=== PATIENT | female | born 1950 | race African-American/Black ===

== ENCOUNTER → 2016-05-24 | Outpatient (CLI) | payer MEDICARE ==
--- NOTE | 2016-05-24 13:37 | CT ---
EXAMINATION TYPE: CT chest w con DATE OF EXAM: 05/24/2016 1:12 PM COMPARISON: 11/17/2015 HISTORY: Patient has left lobe nodule CT DLP: 683 mGycm, Automated exposure control for dose reduction was used. CONTRAST: Performed injected with 80 mL of Visipaque 320. TECHNIQUE: Axial images were obtained at 5 mm thick sections. Reconstructed images are reviewed on Mama computer in the coronal plane. FINDINGS: Portion of the thyroid visualized is normal. The 0.5 cm nodule at the left base with a small 0.2 cm nodule more medial, series 6 image 29, appears stable from comparison. No enlarged mediastinal or hilar adenopathy is evident. The ascending aorta diameter at the level o f the main pulmonary artery is 2.6 cm. The main pulmonary artery diameter at the bifurcation is 1.[address] sections are obtained through the upper abdomen. Abdomen is essentially unremarkable. IMPRESSIONS: 1. Couple small stable nodules within the left lung base. 2. Previous pleural effusion has resolved.
== END | disposition home or self-care (01) ==
LOC: RADCTMAIN 11:31
PROVIDERS: ATTEND Family Medicine
DX: R91.8 Other nonspecific abnormal finding of lung field (principal); Z88.8 Allergy status to other drugs, medicaments and biological substances
CPT/HCPCS: 82565; 84520; 71260; 36415; Q9967

== ENCOUNTER → 2021-02-21 | Outpatient (CLI) | payer MEDICARE ==
--- NOTE | 2021-02-21 11:37 | MM ---
Reason for exam: screening (asymptomatic). Last mammogram was performed 6 years and 2 months ago. History: Patient is postmenopausal. Took estrogen for 17 years 7 months beginning at age 45. Physical Findings: A clinical breast exam by your physician is recommended on an annual basis and results should be correlated with mammographic findings. MG 3D Screening Mammo W/Cad Bilateral CC and MLO view(s) were taken. Prior study comparison: December 07, 2014, right breast MG 3d diag mammo wo cad RT. November 16, 2014, bilateral MG screening mammo w CAD. The breast tissue is heterogeneously dense. This may lower the sensitivity of mammography. There are benign appearing round vascular calcifications bilaterally. There is no discrete abnormality. ASSESSMENT: Benign, BI-RAD 2 RECOMMENDATION: Routine screening mammogram of both breasts in 1 year.
== END | disposition home or self-care (01) ==
LOC: RADMAMWWP 09:01
PROVIDERS: ATTEND Family Medicine
DX: Z12.31 Encounter for screening mammogram for malignant neoplasm of breast (principal); Z78.0 Asymptomatic menopausal state
CPT/HCPCS: 77063; 77067

== ENCOUNTER → 2023-08-13 | Outpatient (CLI) | payer MEDICARE ==
--- NOTE | 2023-08-13 21:47 | MR ---
EXAMINATION TYPE: MR lumbar spine wo/w con DATE OF EXAM: 08/13/2023 7:42 PM CLINICAL INDICATION:Female, 73 years old with history of M54.50 lower back pain, R32 urinary incontin ence; , Low back pain that radiates down both legs for 2 months. COMPARISON: None TECHNIQUE: Multi planar, multi sequence imaging was performed utilizing: T1-weighted, T2-weighted, a nd turbo inversion recovery imaging of the lumbar spine. IV Contrast: 9 cc Gadavist. (None if empty) FINDINGS: Alignment: The lumbar vertebral bodies have preserved heights with grade 1 anterolisthesis of L3 on L 5. Cord: The conus medullaris and the distal spinal cord appear unremarkable with regards to their signa l intensity and morphology. Bones/Discs: Mild degeneration changes throughout the spine with osteophyte formation and facet joint arthropathy. Intervertebral disc signal is maintained. No abnormal postcontrast enhancement. T12-L1: No evidence of significant spinal canal stenosis or neural foraminal stenosis. L1-L2: No evidence of significant spinal canal stenosis or neural foraminal stenosis. L2-L3: No evidence of significant spinal canal stenosis or neural foraminal stenosis. L3-L4: Disc uncovering from grade 1 anterolisthesis and facet joint arthropathy with mild spinal lily l stenosis and moderate left and mild to moderate right neural foraminal stenosis. L4-L5: No evidence of significant spinal canal stenosis or neural foraminal stenosis. L5-S1: The disc has a rounded posterior morphology without significant spinal canal stenosis. Facet j oint arthropathy with mild to moderate bilateral neural foraminal stenosis. No significant spinal canal or neural foraminal stenosis in the remainder of the visualized levels. Other findings: None. IMPRESSION: 1. No definitive evidence of disc herniation or significant spinal canal stenosis. 2. Mild disc degeneration with associated osteoarthritic changes. Neural foraminal stenosis worse at L3-L4 with mild to moderate right and moderate left neural foraminal stenosis. 3. Grade 1 anterolisthesis of L3 on L4.
== END | disposition home or self-care (01) ==
LOC: RADMRIMAIN 18:24
PROVIDERS: ATTEND Family Medicine
DX: M51.36 Other intervertebral disc degeneration, lumbar region (principal); M99.73 Connective tissue and disc stenosis of intervertebral foramina of lumbar region; M43.16 Spondylolisthesis, lumbar region; R32 Unspecified urinary incontinence
CPT/HCPCS: 72158; A9585

== ENCOUNTER → 2024-09-11 | Outpatient (CLI) | payer MEDICARE, OTHER ==
--- NOTE | 2024-09-11 12:24 | MR ---
EXAMINATION TYPE: MR shoulder RT wo con DATE OF EXAM: 09/11/2024 11:41 AM COMPARISON: None. CLINICAL INDICATION: Female, 74 years old with history of M77.8 tendonitis, Right shoulder pain TECHNIQUE: Multiplanar, multisequence imaging of the right shoulder is performed without contrast. FINDINGS: The long head biceps tendon appears intact and appropriately situated along the bicipital groove. The subscapularis tendon is intact. There is moderate to severe degenerative change of the AC joint with space narrowing, marginal spurri ng, and reactive subchondral marrow signal change. Inferior spurring abuts the underlying myotendinou s junction of the supraspinatus. There is a mild subacromial/subdeltoid result effusion. There is a bursal sided tear of the anterior supraspinatus tendon measuring 8 mm long and involving j ust over 50% of the tendon thickness. Intrasubstance extension into the mid supraspinatus tendon fibe rs at the footprint for a total AP dimension of 9 mm. There is prominent bursal sided fraying throughout the mid and posterior supraspinatus tendon. In addition, there an area of severe tendinosis and intrasubstance change measuring 1.3 x 1.3 cm invo lving the infraspinatus tendon insertion. No full-thickness rotator cuff tear is seen. The glenohumeral joint is intact without joint effusion. There is a paralabral cyst along the anterior superior corner of the glenoid measuring 8 mm. Correspo nding tear of the anterior superior labrum here. There is a thin tract of fluid extending from here t o the suprascapular notch where a ganglion cyst measures 1.7 x 1.1 x 1.1 cm. No rotator cuff muscle atrophy or abnormal muscle edema is seen. No Hill-Sachs deformity or os acromiale. There is heterogeneous red marrow hyperplasia which may be s een with anemia, obesity, smoking, chronic disease. No suspicious bone marrow replacement. IMPRESSION: 1. Severe supraspinatus and infraspinatus tendinosis in addition to: 2. Bursal sided tear anterior supraspinatus tendon measuring 8 mm long and involving just over 50% of the tendon thickness. Intrasubstance extension into the mid supraspinatus insertion for a total AP d imension of 9 mm. 3. Bursal sided fraying throughout the remainder of the supraspinatus tendon. 4. Severe tendinosis and intrasubstance change involving the infraspinatus tendon measuring 1.3 x 1.3 cm. 5. Additionally, there is a tear of the glenoid labrum at the anterior superior quadrant with an 8 mm paralabral cyst and a communicating 1.7 cm ganglion cyst that has formed at the suprascapular notch. This does not contribute to any muscle atrophy or muscle edema. 6. Moderate to severe AC joint OA. Inferior spurring may contribute to subacromial impingement. [facility], Workstation: [facility], 09/11/2024 12:22 PM
== END | disposition home or self-care (01) ==
LOC: RADMRIMAIN 10:12
PROVIDERS: ATTEND Orthopaedic Surgery
DX: M19.011 Primary osteoarthritis, right shoulder (principal); M67.813 Other specified disorders of tendon, right shoulder; M75.111 Incomplete rotator cuff tear or rupture of right shoulder, not specified as traumatic